=== PATIENT | male | born 1995 | race Caucasian/White ===

== ENCOUNTER 2017-02-25 12:12 | Emergency (ER) | payer BC ==
[2017-02-25] MEDS ORDERED: Sodium Chloride 0.9% 1,000 ML IV ONE (12:39)
[2017-02-25] MEDS ORDERED: Ondansetron 4 MG/2 ML SDV IVPUSH ONE (12:39)
--- NOTE | 2017-02-25 12:50 | EDM.PDOC ---
ED HPI GENERAL MEDICAL PROBLEM - General Chief Complaint: Abdominal Pain Stated Complaint: SICK Time Seen by Provider: 02/25/17 12:46 Source of Information: Reports: Patient History Limitations: Reports: No Limitations - History of Present Illness INITIAL COMMENTS - FREE TEXT/NARRATIVE: History of present illness: [21-year-old male presenting with complaints of abdominal pain and nausea and vomiting for the last couple days. Patient indicates 2-3 days ago he ate at a buffet in town and subsequently feels he has sustained food poisoning.] Review of systems: As per history of present illness and below otherwise all systems reviewed and negative. Past medical history: As per history of present illness and as reviewed below otherwise noncontributory. Surgical history: As per history of present illness and as reviewed below otherwise noncontributory. Social history: No reported history of drug or alcohol abuse. Family history: As per history of present illness and as reviewed below otherwise noncontributory. Physical exam: HEENT: Atraumatic, normocephalic, pupils reactive, negative for conjunctival pallor or scleral icterus, mucous membranes moist, throat clear, neck supple, nontender, trachea midline. Lungs: Clear to auscultation, breath sounds equal bilaterally, chest nontender. Heart: S1S2, regular, negative for clicks, rubs, or JVD. Abdomen: Soft, nondistended, nontender. Negative for masses or hepatosplenomegaly. Negative for costovertebral tenderness. Pelvis: Stable nontender. Genitourinary: Deferred. Rectal: Deferred. Extremities: Atraumatic, negative for cords or calf pain. Neurovascular unremarkable. Neuro: Awake, alert, oriented. Cranial nerves II through XII unremarkable. Cerebellum unremarkable. Motor and sensory unremarkable throughout. Exam nonfocal. Global assessment is benign save the subjective complaint as noted in history of present illness Diagnostics: [CBC, CMP] Therapeutics: [IV fluid, Zofran] Impression: [Gastroenteritis] Plan: [Zofran follow-up with PCP] Definitive disposition and diagnosis as appropriate pending reevaluation and review of above. Abdomen Pain Score (Numeric/FACES): 2 - Related Data Allergies Allergy/AdvReac Type Severity Reaction Status Date / Time Sulfa (Sulfonamide Allergy Cannot Verified 02/25/17 12:21 Antibiotics) Remember Home Meds: Home Meds . [No Known Home Meds] 11/11/13 [History] Past Medical History - Infectious Disease History Infectious Disease History: Reports: Chicken Pox Social & Family History - Family History Family Medical History: Noncontributory - Tobacco Use Smoking Status *Q: Former Smoker Years of Tobacco use: 4 Used Tobacco, but Quit: Yes Month Tobacco Last Used: 1 year ago - Caffeine Use Caffeine Use: Reports: None - Alcohol Use Days Per Week of Alcohol Use: 0 Number of Drinks Per Day: 1 Total Drinks Per Week: 0 - Recreational Drug Use Recreational Drug Use: No ED ROS GENERAL - Review of Systems Review Of Systems: See Below (History of present illness) ED EXAM, GENERAL - Physical Exam Exam: See Below (The history of present illness) Course - Vital Signs Last Recorded V/S: Last Vital Signs Temp 37.0 C 02/25/17 12:30 Pulse 78 02/25/17 12:30 Resp 16 02/25/17 12:30 BP 115/88 02/25/17 12:30 Pulse Ox 97 02/25/17 12:30 - Orders/Labs/Meds Labs: Laboratory Tests 02/25/17 02/25/17 Range/Units 12:49 12:49 WBC 8.19 (4.0-11.0) K/uL RBC 5.24 (4.50-5.90) M/uL Hgb 17.3 H (13.0-17.0) g/dL Hct 48.8 (38.0-50.0) % MCV 93.1 (80.0-98.0) fL MCH 33.0 H (27.0-32.0) pg MCHC 35.5 (31.0-37.0) g/dL RDW Std Deviation 41.9 (28.0-62.0) fl RDW Coeff of Dima 12 (11.0-15.0) % Plt Count 246 (150-400) K/uL MPV 9.40 (7.40-12.00) fL Add Manual Diff YES Neutrophils % (Manual) 42 L (48.0-80.0) % Band Neutrophils % 8 % Lymphocytes % (Manual) 36 (16.0-40.0) % Monocytes % (Manual) 11 (0.0-15.0) % Eosinophils % (Manual) 3 (0.0-7.0) % Nucleated RBC % 0.0 /100WBC Absolute Seg Neuts 3.4 (1.4-5.7) Band Neutrophils # 0.7 Lymphocytes # (Manual) 2.9 H (0.6-2.4) Monocytes # (Manual) 0.9 H (0.0-0.8) Eosinophils # (Manual) 0.2 (0.0-0.7) Nucleated RBCs # 0 K/uL Sodium 138 (136-146) mmol/L Potassium 3.8 (3.5-5.1) mmol/L Chloride 104 (98-110) mmol/L Carbon Dioxide 24 (21-31) mmol/L BUN 19 (6.0-23.0) mg/dL Creatinine 1.3 (0.6-1.5) mg/dL Est Cr Clr Drug Dosing TNP Estimated GFR (MDRD) > 60.0 ml/min Glucose 92 (60-110) mg/dL Calcium 9.6 (8.8-10.8) mg/dL Total Bilirubin 0.6 (0.1-1.5) mg/dL AST 25 (5-40) IU/L ALT 32 (8-54) IU/L Alkaline Phosphatase 92 (40-150) Total Protein 7.9 (6.0-8.0) g/dL Albumin 4.5 (3.5-5.0) g/dL Globulin 3.4 (2.0-3.5) g/dL Albumin/Globulin Ratio 1.3 (1.3-2.8) Amylase 58 (10-90) U/L Lipase 30 (7-80) U/L Meds: Medications Discontinued Medications Generic Name Dose Route Start Last Admin Trade Name Bassam PRN Reason Stop Dose Admin Sodium Chloride 1,000 mls @ 999 mls/hr 02/25/17 12:39 02/25/17 12:52 Normal Saline IV 02/25/17 13:39 999 mls/hr STAT ONE Administration Ondansetron HCl 4 mg 02/25/17 12:39 02/25/17 12:55 Zofran IVPUSH 02/25/17 12:40 4 mg ONETIME ONE Administration Departure - Departure Time of Disposition: 13:47 Disposition: Home, Self-Care 01 Condition: Good Clinical Impression: Gastroenteritis - Discharge Information Referrals: PCP,None [Primary Care Provider] - Forms: ED Department Discharge Additional Instructions: The following information is given to patients seen in the emergency department who are being discharged to home. This information is to outline your options for follow-up care. We provide all patients seen in our emergency department with a follow-up referral. The need for follow-up, as well as the timing and circumstances, are variable depending upon the specifics of your emergency department visit. If you don't have a primary care physician on staff, we will provide you with a referral. We always advise you to contact your personal physician following an emergency department visit to inform them of the circumstance of the visit and for follow-up with them and/or the need for any referrals to a consulting specialist. The emergency department will also refer you to a specialist when appropriate. This referral assures that you have the opportunity for follow-up care with a specialist. All of these measure are taken in an effort to provide you with optimal care, which includes your follow-up. Under all circumstances we always encourage you to contact your private physician who remains a resource for coordinating your care. When calling for follow-up care, please make the office aware that this follow-up is from your recent emergency room visit. If for any reason you are refused follow-up, please contact the [facility] Emergency Department at and asked to speak to the emergency department charge nurse. Take medication as directed Operative PCP in 2-3 days Return to ED as needed as discussed
[2017-02-25 13:28] LABS: CHLORIDE,CL 104 mmol/L (98-110); SODIUM,NA 138 mmol/L (136-146)
== END 2017-02-25 14:09 | disposition home or self-care (01) ==
LOC: MW.ED 12:12
DX: K52.9 Noninfective gastroenteritis and colitis, unspecified (principal); Z87.891 Personal history of nicotine dependence; Z88.2 Allergy status to sulfonamides
CPT/HCPCS: 36415; 80053; 82150; 83690; 85025; 96361; 96374; 99284; J2405; J7040; 99283

== ENCOUNTER 2018-01-09 10:24 | Emergency (ER) | payer BC ==
[2018-01-09] MEDS ORDERED: Ondansetron 4 MG/2 ML SDV IVPUSH ONE (10:27)
[2018-01-09] MEDS ORDERED: Sodium Chloride 0.9% 1,000 ML IV ONE (10:27)
--- NOTE | 2018-01-09 10:31 | EDM.PDOC ---
ED HPI GENERAL MEDICAL PROBLEM - General Stated Complaint: CHEST PAIN Time Seen by Provider: 01/09/18 10:27 Source of Information: Reports: Patient History Limitations: Reports: No Limitations - History of Present Illness INITIAL COMMENTS - FREE TEXT/NARRATIVE: HISTORY AND PHYSICAL: History of present illness: Patient is a 22-year-old male who presents to the emergency room from our occupational health after having an episode of shortness of breath, nausea, vomiting and left sided chest pain or performing some physical activity. He states the symptoms lasted a few minutes which seemed to resolve after he had an emesis. The occupational health nurse wanted him evaluated through the emergency room. Patient states he feels improved at this time. Vital signs are stable. He has no health problems and does not take any prescribed medications. Denies any drug or alcohol abuse. Review of systems: As per history of present illness and below otherwise all systems reviewed and negative. Past medical history: As per history of present illness and as reviewed below otherwise noncontributory. Surgical history: As per history of present illness and as reviewed below otherwise noncontributory. Social history: No reported history of drug or alcohol abuse. Family history: As per history of present illness and as reviewed below otherwise noncontributory. Physical exam: General: Developed and well-nourished 22-year-old male. Alert and oriented. Nontoxic appearing and in no acute distress. HEENT: Atraumatic, normocephalic, pupils equal and reactive bilaterally, negative for conjunctival pallor or scleral icterus, mucous membranes moist, throat clear, neck supple, nontender, trachea midline. No drooling or trismus noted. No meningeal signs Lungs: Clear to auscultation, breath sounds equal bilaterally, chest nontender. Heart: S1S2, regular rate and rhythm without overt murmur Abdomen: Soft, nondistended, nontender. Negative for masses or hepatosplenomegaly. Negative for costovertebral tenderness. Pelvis: Stable nontender. Genitourinary: Deferred. Rectal: Deferred. Skin: Intact, warm, dry. No lesions or rashes noted. Extremities: Atraumatic, negative for cords or calf pain. Neurovascular unremarkable. Neuro: Awake, alert, oriented. Cranial nerves II through XII unremarkable. Cerebellum unremarkable. Motor and sensory unremarkable throughout. Exam nonfocal. Notes: Physical examination is within normal limits. He is agreeable to routine lab work, EKG and chest x-ray at this time. Vital signs are stable. Chest x-ray shows normal sinus rhythm with a rate of 81. Lab work is unremarkable. Chest x-ray shows no evidence of pneumonia or infiltrate. Vital signs are stable. Admission was shared with the patient. He states he is pain-free and has no current systemic complaints. He states "I'm just out of shape [why he had the symptoms]". We discussed signs and symptoms that would prompt him to return to the emergency room. He is agreeable to plan of care and denies any further questions or concerns at this time. Diagnostics: CBC, CMP, EKG, chest x-ray, troponin Therapeutics: IV fluid, Zofran Prescription: None Impression: Nausea and Vomiting Shortness of breath Plan: 1. Tylenol and ibuprofen as needed for pain management 2. Please see her primary care provider in the next 1-2 days. Return to the ED as needed and as discussed. Definitive disposition and diagnosis as appropriate pending reevaluation and review of above. - Related Data Allergies Allergy/AdvReac Type Severity Reaction Status Date / Time Sulfa (Sulfonamide Allergy Cannot Verified 01/09/18 10:50 Antibiotics) Remember Home Meds: Home Meds Ondansetron [Zofran] 4 mg PO Q4H #30 tab 02/25/17 [Rx] Past Medical History - Infectious Disease History Infectious Disease History: Reports: Chicken Pox Social & Family History - Family History Family Medical History: Noncontributory - Caffeine Use Caffeine Use: Reports: None ED ROS GENERAL - Review of Systems Review Of Systems: ROS reveals no pertinent complaints other than HPI. ED EXAM, GENERAL - Physical Exam Exam: See Below (See dictation) Course - Vital Signs Last Recorded V/S: Last Vital Signs Temp 96.7 F 01/09/18 10:51 Pulse 92 01/09/18 10:51 Resp 20 01/09/18 10:51 BP 124/70 01/09/18 10:51 Pulse Ox 92 L 01/09/18 10:51 - Orders/Labs/Meds Orders: Active Orders 24 hr Category Date Time Status EKG Documentation Completion [RC] STAT Care 01/09/18 10:27 Active Sodium Chloride 0.9% [Normal Saline] 1,000 ml Med 01/09/18 10:27 Active IV STAT Medication Orders Sodium Chloride (Normal Saline) 1,000 mls @ 999 mls/hr IV STAT ONE Stop: 01/09/18 11:27 Last Admin: 01/09/18 10:45 Dose: 999 mls/hr Labs: Laboratory Tests 01/09/18 01/09/18 Range/Units 10:35 10:35 WBC 9.57 (4.0-11.0) K/uL RBC 4.92 (4.50-5.90) M/uL Hgb 15.7 (13.0-17.0) g/dL Hct 45.9 (38.0-50.0) % MCV 93.3 (80.0-98.0) fL MCH 31.9 (27.0-32.0) pg MCHC 34.2 (31.0-37.0) g/dL RDW Std Deviation 43.4 (28.0-62.0) fl RDW Coeff of Dima 13 (11.0-15.0) % Plt Count 255 (150-400) K/uL MPV 9.30 (7.40-12.00) fL Nucleated RBC % 0.0 /100WBC Nucleated RBCs # 0 K/uL Sodium 140 (136-148) mmol/L Potassium 3.5 (3.5-5.1) mmol/L Chloride 103 (98-107) mmol/L Carbon Dioxide 25.9 (21.0-32.0) mmol/L BUN 16 (7.0-18.0) mg/dL Creatinine 1.5 H (0.8-1.3) mg/dL Est Cr Clr Drug Dosing 74.20 mL/min Estimated GFR (MDRD) 58.0 ml/min Glucose 118 H (74-106) mg/dL Calcium 9.7 (8.5-10.1) mg/dL Total Bilirubin 0.5 (0.2-1.0) mg/dL AST 18 (15-37) IU/L ALT 25 (14-63) IU/L Alkaline Phosphatase 93 (46-116) U/L Troponin I < 0.050 (0.000-0.056) ng/mL Total Protein 7.2 (6.4-8.2) g/dL Albumin 3.8 (3.4-5.0) g/dL Globulin 3.4 (2.0-3.5) g/dL Albumin/Globulin Ratio 1.1 L (1.3-2.8) Meds: Medications Generic Name Dose Route Start Last Admin Trade Name Bassam PRN Reason Stop Dose Admin Sodium Chloride 1,000 mls @ 999 mls/hr 01/09/18 10:27 01/09/18 10:45 Normal Saline IV 01/09/18 11:27 999 mls/hr STAT ONE Administration Discontinued Medications Generic Name Dose Route Start Last Admin Trade Name Freq PRN Reason Stop Dose Admin Ondansetron HCl 4 mg 01/09/18 10:27 01/09/18 10:45 Zofran IVPUSH 01/09/18 10:28 4 mg ONETIME ONE Administration Departure - Departure Time of Disposition: 11:24 Disposition: Home, Self-Care 01 Clinical Impression: Shortness of breath Nausea and vomiting Qualifiers: Vomiting type: unspecified Vomiting Intractability: non-intractable Qualified Code(s): R11.2 - Nausea with vomiting, unspecified Instructions: Nausea and Vomiting, Adult Referrals: PCP,None [Primary Care Provider] - Additional Instructions: The following information is given to patients seen in the emergency department who are being discharged to home. This information is to outline your options for follow-up care. We provide all patients seen in our emergency department with a follow-up referral. The need for follow-up, as well as the timing and circumstances, are variable depending upon the specifics of your emergency department visit. If you don't have a primary care physician on staff, we will provide you with a referral. We always advise you to contact your personal physician following an emergency department visit to inform them of the circumstance of the visit and for follow-up with them and/or the need for any referrals to a consulting specialist. The emergency department will also refer you to a specialist when appropriate. This referral assures that you have the opportunity for follow-up care with a specialist. All of these measure are taken in an effort to provide you with optimal care, which includes your follow-up. Under all circumstances we always encourage you to contact your private physician who remains a resource for coordinating your care. When calling for follow-up care, please make the office aware that this follow-up is from your recent emergency room visit. If for any reason you are refused follow-up, please contact the [facility] Emergency Department at and asked to speak to the emergency department charge nurse. [facility] [address] [place] [id number] 1. Tylenol and ibuprofen as needed for pain management 2. Please see her primary care provider in the next 1-2 days. Return to the ED as needed and as discussed. - My Orders Last 24 Hours: My Active Orders 01/09/18 10:27 EKG Documentation Completion [RC] STAT Sodium Chloride 0.9% [Normal Saline] 1,000 ml IV STAT - Assessment/Plan Last 24 Hours: My Active Orders 01/09/18 10:27 EKG Documentation Completion [RC] STAT Sodium Chloride 0.9% [Normal Saline] 1,000 ml IV STAT
--- NOTE | 2018-01-09 11:11 | CR ---
EXAMINATION: Portable chest radiograph. HISTORY: Chest pain. FINDINGS: The trachea is midline. The cardiomediastinal silhouette is within normal limits. No pulmonary infilt rates, effusions or pneumothorax. Osseous structures appear unremarkable. IMPRESSION: No acute cardiopulmonary process.
[2018-01-09 11:14] LABS: CHLORIDE,CL 103 mmol/L (98-107); SODIUM,NA 140 mmol/L (136-148)
== END 2018-01-09 11:35 | disposition home or self-care (01) ==
LOC: MW.ED 10:24
DX: R06.02 Shortness of breath (principal); R11.2 Nausea with vomiting, unspecified; Z88.2 Allergy status to sulfonamides
CPT/HCPCS: 36415; 71045; 80053; 84484; 85027; 93005; 96361; 96374; 99284; J2405; J7040

== ENCOUNTER 2018-10-16 20:29 | Emergency (ER) | payer BC ==
[2018-10-16] MEDS ORDERED: Diphtheria,Pertussis(Acell),Tetanus Vaccine 0.5 ML Syringe IM ONE (20:34)
[2018-10-16] MEDS ORDERED: Bacitracin Oint 1 GM U/D Packet TOP ONE (20:34)
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
[2018-10-16] MEDS ORDERED: Ketorolac 60 MG/2 ML SDV IM ONE (22:21)
== END 2018-10-16 22:49 | disposition home or self-care (01) ==
LOC: MW.ED 20:29
DX: S90.32XA Contusion of left foot, initial encounter (principal); S40.211A Abrasion of right shoulder, initial encounter; S90.511A Abrasion, right ankle, initial encounter; Z23 Encounter for immunization; Z88.2 Allergy status to sulfonamides; Z90.49 Acquired absence of other specified parts of digestive tract; V28.4XXA Motorcycle driver injured in noncollision transport accident in traffic accident, initial encounter
CPT/HCPCS: 70450; 71045; 72125; 73030; 73600; 73620; 81003; 90471; 90715; 96372; 99284; J1885; 99283

== ENCOUNTER 2018-10-17 20:12 | Emergency (ER) | payer BC ==
[2018-10-17] MEDS ORDERED: Acetaminophen/HYDROcodone 325-5 MG Tab PO ONE (20:42)
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
== END 2018-10-17 21:04 | disposition home or self-care (01) ==
LOC: MW.ED 20:12
DX: S49.91XA Unspecified injury of right shoulder and upper arm, initial encounter (principal); S99.921A Unspecified injury of right foot, initial encounter; S99.911A Unspecified injury of right ankle, initial encounter; Z88.2 Allergy status to sulfonamides; F17.210 Nicotine dependence, cigarettes, uncomplicated; V89.2XXA Person injured in unspecified motor-vehicle accident, traffic, initial encounter
CPT/HCPCS: 99283; A9270